=== PATIENT | male | born 1985 | race Asian ===

== ENCOUNTER 2022-10-22 08:34 | Emergency (ER) | payer BC, OTHER ==
[~2022-10-22] VITALS: Ht 182.9 cm; Wt 127.0 kg
[2022-10-22] MEDS ORDERED: KETOROLAC TROMETHAMINE 30 MG/ML VIAL IM STA (08:42)
[2022-10-22] MEDS ORDERED: HYDROCODON-ACE1 EA11 PO (10:04)
== END 2022-10-22 10:38 | disposition home or self-care (01) ==
LOC: ER 08:40
DX: S62.317A Displaced fracture of base of fifth metacarpal bone, left hand, initial encounter for closed fracture (principal); W01.0XXA Fall on same level from slipping, tripping and stumbling without subsequent striking against object, initial encounter; Y93.01 Activity, walking, marching and hiking; Y92.89 Other specified places as the place of occurrence of the external cause
CPT/HCPCS: 29125; 73110; 73130; 99284; J1885